=== PATIENT | female | born 1945 | race Caucasian/White ===

== ENCOUNTER 2024-10-05 05:40 | Observation (INO) | payer MEDICARE, OTHER ==
[2024-09-28 14:33] LABS: BILIRUBIN,URINE NEGATIVE (Neg); CLARITY,URINE CLEAR (Clear); COLOR,URINE YELLOW (Yellow); GLUCOSE, URINE NEGATIVE (Neg); KETONES,URINE NEGATIVE (Neg); LEUKOCYTE ESTERASE ,URINE TRACE (Neg); NITRITES, URINE NEGATIVE (Neg); OCCULT BLOOD,URINE NEGATIVE (Neg); PROTEIN,URINE TRACE mg/dl (Neg); UROBILINOGEN,URINE 0.2 E.U/dL (0.2-1.0)
[2024-09-28 14:37] LABS: BASOPHILS % (AUTO) 0.5 % (0-1); EOSINOPHILS # (AUTO) 0.2 X10'3 (0-0.9); LYMPHOCYTES # (AUTO) 1.7 X10'3 (1.1-4.8); LYMPHOCYTES % (AUTO) 23.8 % (21-51); MEAN CORPUSCULAR HEMOGLOBIN 34.6 PG (27.0-31.0); MEAN CORPUSCULAR HGB CONC 34.7 g/dL (33.0-36.5); MEAN CORPUSCULAR VOLUME 99.6 FL (78-98); MEAN PLATELET VOLUME 8.2 FL (7.4-10.4); MONOCYTES # (AUTO) 0.7 X10'3 (0-0.9); MONOCYTES % (AUTO) 10.4 % (2-12); NEUTROPHILS # (AUTO) 4.4 X10'3 (1.8-7.7); NEUTROPHILS % (AUTO) 62.3 % (42-75); PRE OP HEMATOCRIT 35.2 % (35.0-45.0); PRE OP HEMOGLOBIN 12.2 g/dL (12.0-16.0); PRE OP PLATELET COUNT 257 X10'3 (140-440); RED BLOOD COUNT 3.53 X10'6 (4.20-5.60); RED CELL DISTRIBUTION WIDTH 12.9 % (11.5-14.5)
[2024-09-28 14:54] LABS: UA COLLECTION TYPE NON-SPECIFIED
[2024-09-28 14:55] LABS: BACTERIA,URINE NONE SEEN /HPF (Neg); RBC,URINE 0-2 /HPF (0-2); SQUAMOUS EPITHELIAL CELL,UR FEW /LPF (FEW)
[2024-09-28 14:55] LABS: ALBUMIN 3.5 G/DL (3.4-5.0); ALBUMIN/GLOBULIN RATIO 1.2 (1.1-1.5); ALKALINE PHOSPHATASE 51 IU/L (46-116); BLOOD UREA NITROGEN 27 MG/DL (7-18); BUN/CREATININE RATIO 27.3 (10.0-20.0); CALCIUM 9.1 MG/DL (8.5-10.1); CHLORIDE 103 MMOL/L (99-107); CREATININE 0.99 MG/DL (0.40-0.90); PRE OP ALT 26 U/L (30-65); PRE OP ANION GAP 8 (8-16); PRE OP AST 16 U/L (10-37); PRE OP BILIRUB, TOTAL 0.4 MG/DL (0.0-1.0); PRE OP GLUCOSE 196 MG/DL (70-104); PRE OP POTASSIUM 4.3 MMOL/L (3.4-5.1); PRE OP SODIUM 139 MMOL/L (135-145); TOTAL CARBON DIOXIDE 28.4 MMOL/L (24-32); TOTAL PROTEIN 6.5 G/DL (6.4-8.2); eGFR 54 ML/MIN
[2024-09-28 15:09] LABS: HEMOGLOBIN A1C 7.4 % (4.5-6.2)
[2024-10-05] VITALS (22 sets, daily range): BP systolic 138–180; BP diastolic 53–93; PULSE 60–96; RESP 14–20; TEMP 97.4–98.4; O2SAT 94–99
[~2024-10-05] VITALS: Ht 152.4 cm; Wt 88.6 kg
[2024-10-05] MEDS: ceFOXitin sod/dextrose 2g/50ml 50 ML IV ONE (05:30)
[~2024-10-05 05:40] MED LIST: AMLO5TAB16 PO; FISH OIL; LISI20TA28 PO; MAG CITRATE; METF-437 PO; MONT-40 PO; MVI; OMEP20CA16 PO; SIMV80TA89 PO; SUPER B COMPLEX; VITAMIN D3
[2024-10-05] MEDS: famotidine 20mg tablet PO ONE (06:33)
[2024-10-05] MEDS: ringers solution, lacted 1,000 ML IV SCH ×3 (06:33→13:20)
[2024-10-05] MEDS ORDERED: vasoPRESSIN 20 units/ml inj. ONE (06:49)
[2024-10-05] MEDS ORDERED: clindamycin phosphate 40gm vag cream ONE (06:49)
[2024-10-05] MEDS ORDERED: BUPIVAcaine 2.5mg/ml inj 50ml vial (contains preservative) ONE (06:49)
[2024-10-05] MEDS ORDERED: sevoflurane 250ml liquid IH ONE (07:28)
[2024-10-05] MEDS ORDERED: fentaNYL /PF 50mcg/ml 5ml ampule ONE (07:29)
[2024-10-05] MEDS ORDERED: midazolam 1 mg/ML 2ml injection ONE (07:29)
[2024-10-05] MEDS ORDERED: propofol inj 20 ML IV ONE (07:30)
[2024-10-05] MEDS ORDERED: rocuronium 10mg/ml inj IV ONE (07:30)
[2024-10-05] MEDS: BUPIVAcaine/PF 2.5 mg/ml (0.25%) 30ml vial IJ ONE (08:30)
[2024-10-05] MEDS ORDERED: meperidine/PF 25mg/ml syringe IV PRN (09:00)
[2024-10-05] MEDS ORDERED: morphine 4 MG/ML inj SYRINge IV PRN (09:00)
[2024-10-05] MEDS ORDERED: HYDROmorphone/PF 0.2 MG/ML SYRINGE IV PRN ×2 (09:00)
[2024-10-05] MEDS ORDERED: labetalol 20mg/4ml (5mg/ml) syringe IV PRN (09:00)
[2024-10-05] MEDS ORDERED: ondansetron/PF 4mg/2ml inj IV PRN ×2 (09:00→10:40)
[2024-10-05] MEDS ORDERED: morphine 2 MG/ML inj. syringe IV PRN (09:00)
[2024-10-05] MEDS ORDERED: acetaminophen 1,000mg/100ml IV 100 ML IV ONE (09:36)
[2024-10-05] MEDS ORDERED: ondansetron/PF 4mg/2ml inj ONE (09:36)
[2024-10-05] MEDS ORDERED: fluoroscein sod 10% (100mg/ml) 5ml vial ONE (10:14)
[2024-10-05] MEDS ORDERED: metoclopramide 5 mg/ml inj IV PRN (10:40)
[2024-10-05] MEDS ORDERED: temazepam 15mg capsule PO PRN (10:40)
[2024-10-05] MEDS ORDERED: HYDROcodone/acetaminophen 5mg/325mg tablet PO PRN (10:40)
[2024-10-05] MEDS ORDERED: magnesium hydroxide 30ml (MOM) UD suspension PO PRN (10:40)
[2024-10-05] MEDS ORDERED: normal saline 500ml IV soln 500 ML IV PRN (10:40)
[2024-10-05] MEDS ORDERED: diphenhydrAMINE 50 mg/ml inj IV PRN (10:40)
[2024-10-05] MEDS ORDERED: ketorolac trometh 15mg/ml vial 15 MG/ML ML IV PRN (10:40)
[2024-10-05] MEDS: HYDROcodone/acetaminophen 5mg/325mg tablet PO PRN (14:10)
[2024-10-05] MEDS ORDERED: DEXTROSE 15 GM of carb/4 tabs (each vial/BOTTLE has 4 tablets) PO PRN ×2 (14:40)
[2024-10-05] MEDS ORDERED: glucagon, human recombinant 1mg kit SUBCUT PRN (14:40)
[2024-10-05] MEDS ORDERED: dextrose 50%-water 50ml dispensing syringe IV PRN ×2 (14:40)
[2024-10-05] MEDS: lisinopril 20mg tablet PO ONE (15:27)
[2024-10-05] MEDS: INSULIN LISPRO 100 UNIT/ML INSULN.PEN MULTI-DOSE SQ SCH (17:48)
[2024-10-05] MEDS: docusate sod 100mg capsule PO SCH (21:20)
[2024-10-06 02:00] VITALS: BP 131/57; PULSE 75; RESP 14; TEMP 98.1; O2SAT 94
[2024-10-06 05:00] LABS: BASOPHILS % (AUTO) 0.2 % (0-1); EOSINOPHILS # (AUTO) 0.2 X10'3 (0-0.9); EOSINOPHILS % (AUTO) 1.9 % (0-6); HEMATOCRIT 34.2 % (35.0-45.0); HEMOGLOBIN 11.8 g/dl (12.0-16.0); LYMPHOCYTES # (AUTO) 0.9 X10'3 (1.1-4.8); LYMPHOCYTES % (AUTO) 9.1 % (21-51); MEAN CORPUSCULAR HEMOGLOBIN 34.5 PG (27.0-31.0); MEAN CORPUSCULAR HGB CONC 34.5 g/dL (33.0-36.5); MEAN CORPUSCULAR VOLUME 100.2 FL (78-98); MONOCYTES % (AUTO) 9.9 % (2-12); NEUTROPHILS % (AUTO) 78.9 % (42-75); PLATELET COUNT 224 X10'3 (140-440); RED BLOOD COUNT 3.41 X10'6 (4.20-5.60); RED CELL DISTRIBUTION WIDTH 13.1 % (11.5-14.5); WHITE BLOOD COUNT 10.2 X10'3 (4.5-11.0)
[2024-10-06 05:10] LABS: ALBUMIN 3.2 G/DL (3.4-5.0); ANION GAP 7 (8-16); BLOOD UREA NITROGEN 17 MG/DL (7-18); BUN/CREATININE RATIO 18.3 (10.0-20.0); CALCIUM 8.8 MG/DL (8.5-10.1); CHLORIDE 100 MMOL/L (99-107); CREATININE 0.93 MG/DL (0.40-0.90); GLUCOSE 172 MG/DL (70-104); SODIUM 138 MMOL/L (135-145); TOTAL CARBON DIOXIDE 31.5 MMOL/L (24-32); eCRCL 36 ML/MIN; eGFR 58 ML/MIN
[2024-10-06 06:00] VITALS: BP 129/80; RESP 18; TEMP 97.7; O2SAT 99
[2024-10-06 08:00] VITALS: RESP 18; O2SAT 96
[2024-10-06 10:00] VITALS: BP 130/68; PULSE 70; RESP 20; TEMP 98.4; O2SAT 100
== END 2024-10-06 14:40 | disposition home or self-care (01) ==
LOC: PAS 05:40 → SUR 3N 10:56 → INTOOBSV 10:56
PROVIDERS: ADMIT Obstetrics & Gynecology Obstetrics; ATTEND Obstetrics & Gynecology Obstetrics
DX: N81.3 Complete uterovaginal prolapse (principal); E11.9 Type 2 diabetes mellitus without complications; Z79.899 Other long term (current) drug therapy; Z98.890 Other specified postprocedural states
CPT/HCPCS: 58552; 80048; 80053; 81001; 82948; 83036; 86885; 86900; 86901; 88307; A4615; A4618; A7000; G0378; J3490; J7120; 36415; 85025; 87088; A4314; C1758; J0131; J0694; J1815; J2250; J2405; J2704; J3010